=== PATIENT | male | born 1950 | race Caucasian/White ===

== ENCOUNTER → 2017-01-15 | Day surgery (SDC) | payer MEDICARE ==
[~2017-01-15] MED LIST: AMLODIPINE BESY10 MG PO; ASPIRIN EC81 M1 PO; CATAPRES0.1 MG PO; DESYREL50 MG PO; FLOMAX0.4 M1 PO; LIPITOR80 MG PO; METOPROLOL TART25 MG PO; OMEPRAZOLE20 M1 PO; PRINIVIL40 MG PO; SERTRALINE HCL100 M1 PO
--- NOTE | ~2017-01-15 | OR ---
Unit #: [id number] #: [id number] Patient: MAME JUAN [id number] [address] [id number] MR#: [id number] NAME: MAME JUAN ROOM: Date of Procedure: 01/15/2017 Admission Date: 01/15/2017 Surgeon: Marco Ford M.D. : 1950 Attending Physician: Marco Ford M.D. OPERATIVE REPORT JOB NOTE: CC: DR. VIVIENNE OBRIEN PREOPERATIVE DIAGNOSES 1. Screening colonoscopy. 2. History of colonic polyps. POSTOPERATIVE DIAGNOSES 1. Screening colonoscopy. 2. History of colonic polyps. PROCEDURES PERFORMED 1. Colonoscopy to terminal ileum. 2. Polypectomy with electrocautery snare at 70 cm, 60 cm, x 2 at 50 cm, x 2 at 30 cm. ANESTHESIA Monitored anesthesia care. 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 SPECIMENS Sent to pathology. COMPLICATIONS None apparent. CONDITION The patient tolerated the procedure well. INDICATIONS FOR PROCEDURE The patient is a 66-year-old white male, who presents at this time for screening colonoscopy. He has had multiple colonic polyps removed in the past. DESCRIPTION OF PROCEDURE After obtaining informed consent, the patient was brought to the endoscopy suite and after adequate monitored anesthesia care, had the colonoscope placed through the anus and slowly advanced to the level of the cecum without difficulty with the lumen always in view. We were able to pass Unit #: [id number] #: [id number] Patient: MAME JUAN through the ileocecal valve into the terminal ileum and the terminal ileum was normal. The ileocecal valve and cecum were normal. The patient had melanosis coli throughout. The scope was pulled back from the cecum. The ascending colon was normal as was the hepatic flexure, transverse colon, and splenic flexure. At 70 cm, there was a small 3 to 4 mm polyp found. It was excised completely with electrocautery snare, retrieved with a mucus trap, and sent to pathology. There was good hemostasis. Similarly, a 3 to 4 mm polyp was found at 60 cm, x 2 at 50 cm and x2 at 30 cm. Each excised with electrocautery snare, retrieved with a mucus trap, and sent to pathology. One of the 30 cm polyps was unable to be retrieved. Other than this, no other abnormalities were seen in the colon. The descending colon was normal as was the sigmoid colon, rectosigmoid and rectum. On retroflexing in the rectum to the anorectal junction, the patient was found to have some mild internal hemorrhoids. No significant abnormalities. The scope was removed without difficulty. On digital examination, there was good sphincter tone. No masses palpable. The patient went from the endoscopy suite to recovery area in stable condition. RECOMMENDATIONS High-fiber diet, lots of liquids, tucks or wipes p.r.n. Repeat colonoscopy in 3 years time. Dictated by... Chris Gatica/jenny TD: 01/16/2017 05:20 JOB #: [id number] CC: [facility] OPERATIVE REPORT Page 1 of 1 X Marco Ford MD X PROCEDURE OPERATIVE NOTE
== END | disposition home or self-care (01) ==
LOC: COPS 08:15
DX: Z12.11 Encounter for screening for malignant neoplasm of colon (principal); D12.6 Benign neoplasm of colon, unspecified; I12.9 Hypertensive chronic kidney disease with stage 1 through stage 4 chronic kidney disease, or unspecified chronic kidney disease; N18.3 Chronic kidney disease, stage 3 (moderate); K21.9 Gastro-esophageal reflux disease without esophagitis; E78.5 Hyperlipidemia, unspecified; F17.210 Nicotine dependence, cigarettes, uncomplicated; Z79.82 Long term (current) use of aspirin; Z79.899 Other long term (current) drug therapy; Z98.52 Vasectomy status
CPT/HCPCS: 88305; 88313; J2250